=== PATIENT | female | born 1945 | race Caucasian/White ===

== ENCOUNTER → 2016-10-30 | Outpatient (RCR) ==
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
== END ==
PROVIDERS: ATTEND Plastic Surgery
DX: S62.334D Displaced fracture of neck of fourth metacarpal bone, right hand, subsequent encounter for fracture with routine healing (principal); S62.336D Displaced fracture of neck of fifth metacarpal bone, right hand, subsequent encounter for fracture with routine healing

== ENCOUNTER 2016-11-08 11:00 | Outpatient (RCR) ==
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
--- NOTE | 2016-12-06 08:35 | RS.OTDCSUM ---
Subjective Date of Discharge: 11/08/16 Date of Evaluation: 09/13/16 Number of Visits: 23 Treatment Diagnosis: RUE Muscle WEakness (M62.81) Current Level of Function: 13.75 % Impaired. Ordered a hand flexion glove. Pt has made progress with her RUE digit functional use and AROM. Current Complaints/Gains: Pain with digit flexion and gripping. Pain Assessment - Pain Description Pain Description: Tightness, Aching Pain Location: Right small digit, Lower back Pain Description: taut digit flexion of Right hand Functional Outcome Measures UE Functional Index: 51 - G Codes & Severity Modifier G Codes: CMH, goal CI, DC at CI Source of G Code score: CI, Carry, moving, and Handling. Palpation Palpation Findings: Tenderness, Trigger Point Sensation Right Upper Extremity: Impaired Right Lower Extremity: N/A Left Upper Extremity: Intact/Normal Left Lower Extremity: Intact/Normal Comments: hypersensitivity is improving. Patient is able to tolerate more with the RUE sensation. Interventions - Exercise/Activities Exercise/Activities/Manual Therapy: MCP, PIP, DIP gentle stretching, thumb/ digit opposition, thumb to palm. Manual therapy to Extensors of the RUE forearm to decrease pain and tenderness in the RUE long and ring digits. Manaul therapy to the small digit to decrease pain. Joint mobilization done to the 2 rows of carpal bones in the wrist to increase flexibility. Progressive stretching of digits into a full fist. Green progressed to blue t-putty with small beads x4 and digi-flex ex's. Prolonged elbow static stretch with 2# ball and 3# progressed to 4# hand weight ex of pro/supination and wrist flexion/ extension, 10/2. Pt tolerated well. HOME EXERCISE PROGRAM: Cold to tolerance to Right hand, Epsom salt to warm water , mass computer animator and hand pumps. Red t-putty and AROM/gentle stretching - Objective Findings Objective Findings:: AROM increasing - Charges Total Direct Minutes: 0 Total Treatment Time: 0 Procedures billed for this date of service:: 0 Short Term Goals Goal #1: Increase in elbow extension to be -20 degrees. Goal to be met by: 09/27/16 Progress towards goal: Met Goal #2: Increase RUE full fist to 90% Goal to be met by: 10/25/16 Progress towards goal: Partially Met Goal #3: Increase mass computer animator of RUE to 20#. Goal to be met by: 10/25/16 Progress towards goal: Met Goal #4: Pt to increase digit flexions to be WNL. Goal to be met by: 10/25/16 Progress towards goal: Partially Met Maintenance Of Way Supervisor Goals Goal #1: Increase RUE Elbow extension to 0-5 degrees Goal to be met by: 10/11/16 Progress towards goal: Progressing Goal #2: Pt to increase computer animator of RUE to 40# Goal to be met by: 11/09/16 Progress towards goal: Progressing Goal #3: Pt to have full AROM of the RUE hand. Goal to be met by: 11/09/16 Progress towards goal: Progressing Goal #4: Pt to be independent with Home exercise program. Goal to be met by: 11/09/16 Progress towards goal: Partially Met
== END 2016-11-27 ==
PROVIDERS: ATTEND Plastic Surgery
DX: S62.334D Displaced fracture of neck of fourth metacarpal bone, right hand, subsequent encounter for fracture with routine healing (principal); S62.336D Displaced fracture of neck of fifth metacarpal bone, right hand, subsequent encounter for fracture with routine healing